=== PATIENT | male | born 1965 | race Two or more races ===

== ENCOUNTER 2017-08-15 15:00 | Outpatient (CLI) | payer BC | END 2017-08-15 23:59 | disposition home or self-care (01) | LOC: WOU 15:00 | PROVIDERS: ATTEND Specialist | DX: T86.828 Other complications of skin graft (allograft) (autograft) (principal); Q54.1 Hypospadias, penile; T81.89XA Other complications of procedures, not elsewhere classified, initial encounter; E11.9 Type 2 diabetes mellitus without complications; Z79.4 Long term (current) use of insulin | CPT/HCPCS: 11042; 11045; A6209 ×2; A6402 ==

== ENCOUNTER 2017-08-22 09:20 | Outpatient (CLI) | payer BC | END 2017-08-22 23:59 | disposition home or self-care (01) | LOC: WOU 09:20 | PROVIDERS: ATTEND Specialist | DX: Z01.818 Encounter for other preprocedural examination (principal); T86.828 Other complications of skin graft (allograft) (autograft); T81.89XA Other complications of procedures, not elsewhere classified, initial encounter; Q54.1 Hypospadias, penile; E11.9 Type 2 diabetes mellitus without complications; Z79.4 Long term (current) use of insulin | CPT/HCPCS: 11042; 11045; A6209; A6253; A6402 ==

== ENCOUNTER 2017-08-29 09:10 | Outpatient (CLI) | payer BC | END 2017-08-29 23:59 | disposition home or self-care (01) | LOC: WOU 09:10 | PROVIDERS: ATTEND Specialist | DX: T86.821 Skin graft (allograft) (autograft) failure (principal); T81.89XA Other complications of procedures, not elsewhere classified, initial encounter; E11.9 Type 2 diabetes mellitus without complications; Q54.1 Hypospadias, penile; Z79.84 Long term (current) use of oral hypoglycemic drugs | CPT/HCPCS: 11042; A6402 ==

== ENCOUNTER 2017-08-31 11:34 | Outpatient (CLI) | payer BC | END 2017-08-31 23:59 | disposition home or self-care (01) | LOC: RAD 11:34 | PROVIDERS: ATTEND Specialist | DX: R05 Cough (principal) | CPT/HCPCS: 71046 ==

== ENCOUNTER 2017-09-05 10:11 | Outpatient (CLI) | payer BC | END 2017-09-05 23:59 | disposition home or self-care (01) | LOC: WOU 10:11 | PROVIDERS: ATTEND Specialist | DX: T86.828 Other complications of skin graft (allograft) (autograft) (principal); E11.9 Type 2 diabetes mellitus without complications; Q54.1 Hypospadias, penile; T81.89XA Other complications of procedures, not elsewhere classified, initial encounter; Z79.84 Long term (current) use of oral hypoglycemic drugs | CPT/HCPCS: 11042; A6402 ==

== ENCOUNTER 2017-09-19 10:50 | Outpatient (CLI) | payer BC | END 2017-09-19 23:59 | disposition home or self-care (01) | LOC: WOU 10:50 | PROVIDERS: ATTEND Specialist | DX: T81.89XA Other complications of procedures, not elsewhere classified, initial encounter (principal); Q54.1 Hypospadias, penile; E11.9 Type 2 diabetes mellitus without complications | CPT/HCPCS: 11042; A6402 ==

== ENCOUNTER 2017-09-26 08:05 | Outpatient (CLI) | payer BC | END 2017-09-26 23:59 | disposition home or self-care (01) | LOC: WOU 08:05 | PROVIDERS: ATTEND Specialist | DX: T81.89XA Other complications of procedures, not elsewhere classified, initial encounter (principal); T86.828 Other complications of skin graft (allograft) (autograft); Q54.1 Hypospadias, penile; E11.9 Type 2 diabetes mellitus without complications | CPT/HCPCS: 11042; A6402 ==